=== PATIENT | female | born 1985 | race Caucasian/White ===

== ENCOUNTER 2018-09-27 21:31 | Emergency (ER) | payer OTHER, SELFPAY ==
[~2018-09-27] VITALS: Ht 157.5 cm; Wt 89.5 kg
[2018-09-27 21:58] VITALS: BP 125/74
[2018-09-27] MEDS ORDERED: PREN1TAB80 PO (22:09)
== END 2018-09-27 23:45 | disposition left against medical advice (07) ==
LOC: EMS 21:31
DX: R51 Headache (principal); Z53.21 Procedure and treatment not carried out due to patient leaving prior to being seen by health care provider